=== PATIENT | male | born 1950 | race African-American/Black ===

== ENCOUNTER 2018-09-21 06:37 | Day surgery (SDC) | payer OTHER ==
[2018-09-16 10:03] VITALS: BMI 22.8
[2018-09-21] MEDS ORDERED: LIDOCAINE HCL 2% (20ML MULTI-DOSE VIAL) NR ONE (08:39)
[2018-09-21] MEDS ORDERED: MIDAZOLAM HCL 2 MG/2 ML SINGLE DOSE VIAL ONE (08:44)
[2018-09-21] MEDS ORDERED: PROPOFOL 20 ML ONE (08:46)
[2018-09-21] MEDS ORDERED: LIDOCAINE HCL 2% JELLY (5 ML/TUBE) ONE (08:46)
[2018-09-21] MEDS ORDERED: BUPIVACAINE HCL 0.25% 125 MG/50 ML VIAL ONE (09:10)
[2018-09-21] MEDS ORDERED: oxyCODONE HCL 5 MG TABLET PO PRN ×2 (11:16)
[2018-09-21] MEDS ORDERED: ONDANSETRON 4 MG/2 ML VIAL IVPUSH PRN (11:16)
[2018-09-21] MEDS ORDERED: LACTATED RINGERS SOLUTION 1,000 ML IV SCH (11:30)
[2018-09-21 12:33] VITALS: BP 124/73; PULSE 51; TEMP 97.6
--- NOTE | 2018-09-22 09:07 | OP ---
DATE OF OPERATION: 09/21/2018 PREOPERATIVE DIAGNOSIS: Right ring finger and palm Dupuytren's disease with contracture. POSTOPERATIVE DIAGNOSIS: Right ring finger and palm Dupuytren's disease with contracture. OPERATIVE PROCEDURE: Right hand and ring finger partial palmar and digital fasciectomy with release of Dupuytren's contracture and Z-plasties. SURGEON: Luis Yeung MD [employer] WORKER: SON Solis ANESTHESIA: General. COMPLICATIONS: None. ESTIMATED BLOOD LOSS: Minimal. INDICATION FOR PROCEDURE: The patient is a 68-year-old male with the above findings, indicated for operative treatment. Risks, benefits, and alternatives were discussed with the patient at length. Proper informed consent was obtained. DESCRIPTION OF PROCEDURE: After proper identification of the patient and correct operative site, patient was brought to the operating room and placed supine on the table. All prominences were well padded. General anesthesia was given. Right upper extremity was prepped and draped in usual sterile fashion. A well-padded tourniquet was placed, as well as a sterile prep. Esmarch bandage used to exsanguinate the right upper extremity, and tourniquet was inflated to 250 mmHg. A longitudinal incision was made over the palm into the base of the finger. Incision was taken sharply through the skin, with sharp and blunt dissection throughout the procedure, carefully dissecting free the Dupuytren's cord in the palm and into the ring finger. Once the Dupuytren's cord was properly identified and out from any neurovascular structures which were carefully identified, the cord was released proximally, and a proximal and distal dissection was performed to remove the cord. Once this was completed, the neurovascular bundles were inspected and found to be intact. The finger was able to be fully straightened. Z-plasties were performed in the palm due to some tight skin in the area. Wound was closed with 5-0 fast-absorbing plain gut and Dermabond. Sterile dressings were applied. Patient was reversed from anesthesia and brought to recovery in stable condition. He tolerated the procedure well. Alfredo Antonio, the printer assistant was integral throughout the procedure. Procedure could not have been performed without a skilled operative printer assistant. Vargas [id number]
--- NOTE | 2018-09-23 15:44 | PATH ---
Surgical Pathology Report Patient Name: NOLAN MCLAIN [facility]. Rec. #: [id number] /Age/Gender: 1950 (Age: 68) / M Account: [id number] Location: [facility] Taken: 09/21/2018 Received: 09/21/2018 Reported: 09/23/2018 Physicians: Luis Yeung M.D. Specimen(s) Received RIGHT PALMAR FASCIA Clinical History Right hand Dupuytren's contracture right ring finger Final Diagnosis PALMAR FASCIA, RIGHT, EXCISION: DENSE FIBROUS TISSUE CONSISTENT WITH FIBROMATOSIS. Electronically Signed Joyce Lee M.D. Gross Description Received in formalin labeled "right palmar fascia," is a 2.5 x 0.5 x 0.3 cm lemus portion of firm fibrous tissue. The specimen is submitted in toto in one cassette. 09/22/201809/22/2018
== END 2018-09-21 12:10 | disposition home or self-care (01) ==
LOC: FASU 06:37
PROVIDERS: ATTEND Orthopaedic Surgery Hand Surgery
PROC: 0HXFXZZ Transfer Right Hand Skin, External Approach (ICD-10-PCS; 2018-09-21)
PROC: 0LN70ZZ Release Right Hand Tendon, Open Approach (ICD-10-PCS; 2018-09-21)
PROC: 0JNJ0ZZ Release Right Hand Subcutaneous Tissue and Fascia, Open Approach (ICD-10-PCS; principal; 2018-09-21 09:18)
DX: M72.0 Palmar fascial fibromatosis [Dupuytren] (principal)
CPT/HCPCS: 88304-TC; 94760